=== PATIENT | female | born 2000 | race Hispanic/Latino ===

== ENCOUNTER 2019-08-15 02:13 | Observation (INO) | payer MEDICAID ==
[~2019-08-15] VITALS: Ht 157.5 cm; Wt 76.7 kg
[2019-08-15 02:50] LABS: APPEARANCE,URINE Cloudy (CLEAR); BILIRUBIN,URINE Negative (NEGATIVE); COLOR,URINE Yellow (YELLOW); GLUCOSE, URINE (UA) Negative (NEGATIVE); KETONES,URINE Negative (NEGATIVE); LEUKOCYTE ESTERASE ,URINE Large (NEGATIVE); NITRATE,URINE Negative (NEGATIVE); OCCULT BLOOD,URINE Small (NEGATIVE); PH,URINE 6.5 (5.0-8.0); PROTEIN,URINE POS 1+ mg/dL (NEGATIVE); UROBILINOGEN,URINE 0.2 mg/dL (0.2-1.0)
[2019-08-15 02:57] LABS: AMPHET/METH SCREEN,URINE NEGATIVE (NEGATIVE); BARBITURATE SCREEN, URINE NEGATIVE (NEGATIVE); BENZODIAZEPINES SCREEN,URINE NEGATIVE (NEGATIVE); CANNABINOID SCREEN,URINE NEGATIVE (NEGATIVE); COCAINE SCREEN,URINE NEGATIVE (NEGATIVE); OPIATE SCREEN,URINE NEGATIVE (NEGATIVE); PHENCYCLIDINE SCREEN,URINE NEGATIVE (NEGATIVE)
[2019-08-15 03:33] LABS: BACTERIA,URINE Few /HPF (None Seen); WBC,URINE >100 /HPF (0-1)
[2019-08-15] MEDS ORDERED: LACTATED RINGERS 1000ML 1,000 ML IV PRN (04:01)
[2019-08-15] MEDS ORDERED: TERBUTALINE SULFATE VIAL 1MG/ML SQ SCH ×2 (04:15)
[2019-08-15] MEDS ORDERED: LACTATED RINGERS 1000ML 1,000 ML IV SCH (04:15)
[2019-08-15] MEDS ORDERED: TERBUTALINE SULFATE VIAL 1MG/ML SQ ONE (04:17)
[2019-08-15] MEDS ORDERED: LACTATED RINGERS 1000ML 1,000 ML IV ONE (04:17)
== END 2019-08-15 08:34 | disposition home or self-care (01) ==
LOC: EDH 02:13 → LDH 02:14
PROVIDERS: ADMIT Obstetrics & Gynecology; ATTEND Obstetrics & Gynecology
DX: O26.893 Other specified pregnancy related conditions, third trimester (principal); R10.32 Left lower quadrant pain; Z3A.28 28 weeks gestation of pregnancy
CPT/HCPCS: 80305; 81001; 96372; 99284; G0378 ×6; J3105; J7120; 96360; 96361